=== PATIENT | female | born 1965 | race Hispanic/Latino ===

== ENCOUNTER 2021-02-18 12:56 | Outpatient (CLI) | payer SELFPAY ==
[2021-02-18 16:02] LABS: Bilirubin Neg (Negative); Blood, Urine 50 (Negative); Clarity Clear (Clear); Glucose, Urine (Dipstick) Normal (Negative); Ketone, Urine Negative (Negative); Leukocyte Negative (Negative); Nitrite Negative (Negative); Protein, Urine (Dipstick) Negative (Neg-Trace); Urobilinogen Normal mg/dL (Less than 2)
[2021-02-18 17:03] LABS: Squamous Epithelial 0-3 HPF (0-3); WBC/HPF 0-3 HPF (0-3)
== END 2021-02-18 12:57 | disposition home or self-care (01) ==
LOC: LABBT 12:56
PROVIDERS: ATTEND Urology
DX: Z01.818 Encounter for other preprocedural examination (principal); N20.1 Calculus of ureter
CPT/HCPCS: 81001; 87086; 93005; 93010

== ENCOUNTER 2021-02-19 12:07 | Day surgery (SDC) | payer OTHER ==
[2021-02-18 14:35] VITALS: BMI 22.8
[2021-02-19] MEDS ORDERED: Levofloxacin 500 mg/D5W 100 ml Premix Bag ONE (13:06)
[2021-02-19] MEDS ORDERED: Iothalamate Meglumine 60% 50 ML VIAL FS ONE (14:16)
[2021-02-19] MEDS ORDERED: Fentanyl 100 MCG/2 ML VIAL ONE (14:21)
[2021-02-19] MEDS ORDERED: PROPOFOL 200 MG/20 ML VIAL ONE (14:34)
[2021-02-19] MEDS ORDERED: Lidocaine 1% PF 5 ML VIAL ONE (14:34)
[2021-02-19] MEDS ORDERED: Dexamethasone 20 MG/5 ML VIAL ONE (14:34)
[2021-02-19] MEDS ORDERED: Ondansetron PF 4 MG/2 ML Vial ONE (14:34)
[2021-02-19] MEDS ORDERED: Oxybutynin 5 MG TAB ONE (15:11)
[2021-02-19] MEDS ORDERED: Ketorolac Tromethamine 30 MG/ML VIAL ONE (15:42)
[2021-02-19] MEDS ORDERED: HYDROcodone/Acetaminophen 5/325 mg Tablet ONE (16:47)
== END 2021-02-19 17:13 | disposition home or self-care (01) ==
LOC: SDC 12:07
PROVIDERS: ATTEND Urology
PROC: 0TC68ZZ Extirpation of Matter from Right Ureter, Via Natural or Artificial Opening Endoscopic (ICD-10-PCS; principal; 2021-02-19)
PROC: 0T768DZ Dilation of Right Ureter with Intraluminal Device, Via Natural or Artificial Opening Endoscopic (ICD-10-PCS; principal; 2021-02-19)
DX: N13.5 Crossing vessel and stricture of ureter without hydronephrosis (principal); N81.0 Urethrocele; Z79.899 Other long term (current) drug therapy; Z88.6 Allergy status to analgesic agent; Z91.013 Allergy to seafood
CPT/HCPCS: 74420; 82365; 88300; C2617; J1100; J1885; J1956; J2405; J2704; J3010; Q9961